=== PATIENT | male | born 1970 | race Caucasian/White ===

== ENCOUNTER 2020-05-24 18:26 | Emergency (ER) | payer OTHER, SELFPAY ==
--- NOTE | ~2020-05-24 | XR_ITS ---
XR chest 2V DATE: 05/24/2020 18:48 INDICATION: Cough for one month. Chest pressure. TECHNIQUE: PA and lateral views COMPARISON: None FINDINGS: Normal heart size. Bilateral hyperinflation. No pulmonary infiltrate or consolidation, pu lmonary vascular congestion or pleural effusion or pneumothorax. IMPRESSION: Bilateral hyperinflation. No active cardiopulmonary disease Reviewed, dictated and finalized at location A.
--- NOTE | 2020-05-24 18:29 | ED.GENADULT ---
HPI - General Adult General Chief complaint: Upper Respiratory Infection Stated complaint: shortness of breath/cough/disoriented Time Seen by Provider: 05/24/20 18:39 Source: patient Mode of arrival: ambulatory Limitations: no limitations History of Present Illness HPI narrative: 49-year-old male patient presents to the [facility] with complaints of chest pressure and shortness of breath for about a month now. Patient states he has had a cough and sometimes he gets into some coughing fits and he feels like he is oxygen because after the coughing fit he feels lightheaded and disoriented. Patient states he is an active heavy smoker. Patient states he does not see his primary doctor often is been over a year since he last saw . Patient states he is also had a rash that he noticed today as well. Patient states he is coming in today because the shortness of breath continues to get worse. Denies any fevers, body aches or chills. Denies any abdominal pain, nausea, vomiting or diarrhea. Related Data Allergies Allergy/AdvReac Type Severity Reaction Status Date / Time No Known Allergies Allergy Unverified 05/24/20 18:40 Review of Systems Review of Systems: Narrative: CONSTITUTIONAL: Denies fever, chills, or sweats. EYES: Denies visual changes, redness, or discharge. ENT: Denies rhinorrhea, congestion, sore throat, or otalgia. CARDIOVASCULAR: Positive chest pain, denies palpitations, or edema. RESPIRATORY: Positive cough or dyspnea. GASTROINTESTINAL: Denies abdominal pain, nausea, vomiting, or diarrhea. GENITOURINARY: Denies dysuria or hematuria. SKIN: Denies rash or itching. MUSCULOSKELETAL: Denies back pain, joint pain, or myalgia. NEUROLOGIC: Denies headache, numbness, or weakness. PSYCHIATRIC: Denies anxiety or depression. PMFSH Comments At the time of my signature I agree with nursing past medical history, surgical, social, and family history. There is no relevant family history pertinent to the presenting complaint. Exam Narrative: Exam Narrative: GENERAL: Well-appearing, well-nourished, and in no acute distress. HEAD: Normocephalic, atraumatic. EYES: PERRLA and EOMI. ENT: Nares clear, no rhinorrhea or epistaxis. Mucous membranes moist. NECK: Supple. No lymphadenopathy CHEST: Bilateral upper and lower lobes are significantly diminished and unable to hear much airflow at this time.. Patient does have some slight labored breathing noted no tripoding. HEART: Regular rate and rhythm. No murmur heard. Normal peripheral pulses. ABDOMEN: Soft, nontender, nondistended, normal active bowel sounds. EXTREMITIES: Normal range of motion. No edema. SKIN: Warm, dry, no rash. Patient appears to have petechiae all over his trunk as well as bilateral upper arms. NEURO: No focal deficits. Alert and oriented x3. Course Reevaluation(s) Reevaluation #1: Reevaluated patient. Patient states he feels a little bit better after receiving the DuoNeb. Patient does have some expiratory wheezing noted to bilateral upper lower lobes but still very diminished to bilateral upper and lower lobes on auscultation. Discussed with patient his x-ray is negative for pneumonia his EKG looks okay however I am still concerned that he has some other stuff going on possibly some COPD. Patient states he is not from this area and is actually from the [facility] area and states he is just down here working today and refusing to go the emergency department today. Patient states that if he does feel like he is getting increasingly worse he will go to the emergency department. Discussed with patient I will go ahead and send him home with some outpatient medications including an antibiotic, steroids and an inhaler. Discussed with patient however that if he continues to worsen at all then he needs to go the emergency department for further evaluation. Patient verbalized understanding and is in agreement with this plan of care. Date: 05/24/20 Time: 19:24 Vital Signs Vit
[2020-05-24 18:33] VITALS: BP 127/88; PULSE 71; RESP 18; TEMP 37.1; O2SAT 98
--- NOTE | 2020-05-24 18:39 | ECG_ITS ---
Measurements Intervals [place] Rate: 72 P: 76 CA: 143 QRS: 82 QRSD: 92 T: 61 QT: 357 QTc: 391 Interpretive Statements SINUS RHYTHM PEAKED T WAVES- CONSIDER HYPERKALEMIA OR ISCHEMIA BASELINE ARTIFACT- I, II, III, AVR, AVL, AVF ABNORMAL ECG Electronically Signed On 05-25-2020 9:31:34 CDT by Doug Doan D.O.
[2020-05-24 18:50] VITALS: PULSE 71; RESP 18; O2SAT 98
[2020-05-24] MEDS: ALBUTEROL SULFATE NEB 2.5 MG/3 ML INH INHALATION (18:57)
[2020-05-24] MEDS: IPRATROPIUM BR 0.02% INH SOLN 0.5 MG/2.5 ML VIAL INHALATION (18:57)
[2020-05-24 19:21] VITALS: PULSE 71; RESP 19; O2SAT 95
== END 2020-05-24 19:33 | disposition home or self-care (01) ==
PROVIDERS: Emergency Provider Nurse Practitioner Family
DX: J20.9 Acute bronchitis, unspecified (principal); R94.31 Abnormal electrocardiogram [ECG] [EKG]
CPT/HCPCS: 71046; 93005; 94640; 99203; G0463